=== PATIENT | female | born 1975 | race Caucasian/White ===

== ENCOUNTER 2019-11-11 11:39 | Emergency (ER) | payer MEDICARE, OTHER ==
[~2019-11-11] VITALS: Ht 162 cm; Wt 115.0 kg
--- NOTE | 2019-11-11 11:54 | ED Integumentary General ---
General Chief Complaint: Skin/Wound Problems Stated Complaint: LOOP MONITOR ISSUE Source: patient, RN/MD, RN notes reviewed, old records Exam Limitations: no limitations History of Present Illness Date Seen by Provider: Nov 11, 2019 Time Seen by Provider: 11:52 Initial Comments This patient is a 43-year-old female presents to the emergency department with a concern of a loop radio electrician. Patient has implanted in the medial side of the left breast area placed a Cassidy Baird. Patient states that the incision has opened of exposing part of the metal device. She states she was advised by her district operations manager emergency department to have the loop radio electrician remaining. Timing/Duration: this morning Severity: mild Allergies and Home Medications Patient Home Medication List Home Medication List Reviewed: Yes Review of Systems Review of Systems Constitutional: No no symptoms reported; see HPI; No chills, No diaphoresis, No dizziness, No fever, No malaise, No weakness, No weight gain, No weight loss, No other EENTM: No see HPI, No no symptoms reported, No ear discharge, No hearing loss, No ear pain, No blurred vision, No double vision, No eye pain, No tearing, No vision loss, No dental problems, No hoarseness, No mouth pain, No mouth swelling, No epistaxis, No nose congestion, No nose pain, No throat pain, No throat swelling, No other Respiratory: No no symptoms reported, No see HPI, No cough, No dyspnea on exertion, No hemoptysis, No orthopnea, No phlegm, No short of breath, No stridor, No wheezing, No other Cardiovascular: No no symptoms reported; see HPI; No chest pain, No edema, No Hx of Intervention, No palpitations, No syncope, No vascular heart diseas, No other Gastrointestinal: No RUQ, No LUQ, No RLQ, No LLQ, No no symptoms reported, No see HPI, No abdominal pain, No constipation, No diarrhea, No dysphagia, No hematemesis, No heartburn, No jaundice, No loss of appetite, No melena, No nausea, No vomiting, No other Genitourinary: No no symptoms reported, No see HPI, No decreased output, No discharge, No dysuria, No frequency, No hematuria, No hesitancy, No incontinence, No nocturia, No pain, No other Musculoskeletal: No no symptoms reported, No see HPI, No back pain, No gout, No joint pain, No joint swelling, No muscle pain, No muscle stiffness, No muscle cramps, No muscle twitching, No muscle weakness, No neck pain, No other Skin: No no symptoms reported, No see HPI, No change in color, No change in hair/nails, No dryness, No hx of skin cancer, No lesions, No lumps, No pruritus, No rash, No other Psychiatric/Neurological: Denies No Symptoms Reported, Denies See HPI, Denies Anxiety, Denies Depressed, Denies Emotional Problems, Denies Headache, Denies Numbness, Denies Paresthesia, Denies Pre-Existing Deficit, Denies Seizure, Denies Tingling, Denies Tremors, Denies Weakness, Denies Other Endocrine: Denies No Symptoms Reported, Denies See HPI, Denies Excessive Sweating, Denies Flushing, Denies Intolerance to Cold, Denies Intolerance to Heat, Denies Increased Hunger, Denies Increased Thrist, Denies Increased Urine, Denies Unexplained Weight Gain, Denies Unexplaned Weight Loss, Denies Other All Other Systems Reviewed Negative Unless Noted: Yes Past Euxohru-Oaqbwk-Dhgpzv Hx Patient Social History Recent Foreign Travel: No Contact w/Someone Who Travel: No Physical Abuse: No Sexual Abuse: No Mistreated: No Fear: No Physical Exam Vital Signs Vital Signs - First Documented 11/11/19 11:56 Temp 36.2 Pulse 76 Resp 18 B/P (MAP) 99/57 (71) Pulse Ox 99 O2 Delivery Room Air Capillary Refill : General Appearance: WD/WN, no apparent distress Cardiovascular: normal peripheral pulses, regular rate, rhythm, no edema, no gallop, no JVD, no murmur, other (decision is openly homicidal left breast exposing portion of the cardiac loop monitor.) Respiratory: chest non-tender, lungs clear, normal breath sounds, no respiratory distress, no accessory muscle use Gastrointestinal: normal bowel sounds, non tender, soft, no organomegaly, no pulsatile mass Skin: normal color, warm/dry, other (as stated above) Procedures/Interventions I&D : Progress With forceps easily removed with radio electrician. No bleeding. Patient bandaged placed without difficulty. Progress/Results/Core Measures Results/Orders My Orders Orders - MIGEL YANG MD Chest 1 View Ap/Pa Only (11/11/19 11:51) Vital Signs/I&O 11/11/19 11:56 Temp 36.2 Pulse 76 Resp 18 B/P (MAP) 99/57 (71) Pulse Ox 99 O2 Delivery Room Air Progress Progress Note : Time: 12:04 Progress Note Patient does have open wound left breast where loop radio electrician was placed. I did speak with patient's district operations manager who requests that we removed with forceps. And sent back with patient in a specimen jar. This was done without difficulty. Departure Impression Primary Impression: Foreign body in skin Disposition: 01 HOME, SELF-CARE Condition: Stable Departure-Patient Inst. Decision time for Depature: 12:06 Referrals: NO,LOCAL PHYSICIAN (PCP) Primary Care Physician Patient Instructions: Foreign Body in Skin (DC) Add. Discharge Instructions: Follow-up your district operations manager Dr. Moraes upon arrival back to [facility]. Keep wound clean and dry and covered with Neosporin. All discharge instructions reviewed with patient and/or family. Voiced understanding. MIGEL YANG MD Nov 11, 2019 11:54
[2019-11-11 11:56] VITALS: BP 99/57
--- NOTE | 2019-11-11 12:09 | Diagnostic Imaging Report ---
Indication: Loop recorder evaluation Portable chest There is a loop recorder projecting over the left lower medial chest. Heart size and pulmonary vascularity are normal. Lungs are clear. There are no effusions or pneumothoraces. IMPRESSION: No acute abnormalities the chest Dictated by: Dictated on workstation # [id number]
== END 2019-11-11 12:08 | disposition home or self-care (01) ==
LOC: EDUNIT# 11:39 → ER FS 11:41
DX: L92.3 Foreign body granuloma of the skin and subcutaneous tissue (principal)
CPT/HCPCS: 71045